=== PATIENT | male | born 1965 | race Two or more races ===

== ENCOUNTER 2018-12-01 16:26 | Outpatient (REF) | payer OTHER, SELFPAY ==
[2018-12-01 21:01] LABS: Anion Gap 10.8 mmol/L (3-11); BUN 10 mg/dL (7-18); CO2 27.2 mmol/L (21.0-32.0); CREATININE 0.88 mg/dL (0.70-1.30); Calcium 9.4 mg/dL (8.5-10.1); Chloride 102 mmol/L (98-107); Cholesterol 222 mg/dL (50-200); Glucose 94 mg/dL (70-100); HDL Cholesterol 47 mg/dL (40-60); LDL CHOLESTEROL 160 mg/dL (<100); Potassium 4.5 mmol/L (3.5-5.1); Sodium 140 mmol/L (136-145); Triglyceride 76 mg/dL (30-150)
[2018-12-03 10:41] LABS: PSA, Screening 0.2 ng/ml (0-3.5)
== END 2018-12-01 16:46 ==
LOC: NCHCN 16:26
PROVIDERS: PCP Specialist/Technologist Athletic Trainer; Visit Provider Specialist/Technologist Athletic Trainer
DX: Z13.220 Encounter for screening for lipoid disorders (principal); Z13.228 Encounter for screening for other metabolic disorders; Z12.5 Encounter for screening for malignant neoplasm of prostate; Z00.00 Encounter for general adult medical examination without abnormal findings
CPT/HCPCS: 80048; 80061; 83721; 84153

== ENCOUNTER 2018-12-17 00:42 | Outpatient (CLI) | payer OTHER, SELFPAY ==
--- NOTE | 2018-12-17 08:30 | ETT_ITS ---
*[facility]* *[facility]* [address] [place] [address] Stress Electrocardiography Dayne protocol Date of study: 12/17/2018 *PATIENT PRESENTATION* Height: 170.2cm (67in) Blood Pressure: Weight: 88.6kg (195lb) BSA: 2.07m^2 Referring physician: Kenn Cassidy Ordering physician: Kenn Cassidy Impressions: Normal study after maximal exercise. Summary: 1. Stress ECG conclusions: [place] treadmill score: 12. This score predicts a low risk of cardiac events. 2. Stress: The target heart rate was achieved. Indication: R07.9. History: REASON FOR TESTING: PATIENT REPORTS HAVING INTERMITTENT BRIEF EPISODES OF CHEST PAIN FOR THE PAST YEAR. THIS CHEST PAIN LASTS A COUPLE OF MINUTES, IS NON RADIATING IN NATURE, NOT ASSOCIATED WITH ACTIVITY OR REST, AND GOES AWAY AFTER I BURP. PATIENT DENIES CHEST PAIN UPON ARRIVAL TO TESTING TODAY. NO SIGNIFICANT PAST MEDICAL HISTORY. SMOKING STATUS: CURRENT SMOKER, 1 PPD. 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 Risk factors: Family history of coronary artery disease. Current tobacco use. Obesity. Dyslipidemia. Cholesterol: 222mg/dl. HDL: 47mg/dl. LDL: 160mg/dl. Triglycerides: 76mg/dl. ALLERGIES: PENICILLIN. MEDICATIONS: NONE. Protocol: Dayne protocol. Baseline ECG: SINUS RHYTHM. HR 63. INVERTED T WAVES IN LEADS AVL AND V1. Stress protocol: + +---+ + !Stage !HR !BP (mmHg) ! + +---+ + !Baseline supine !63 !110/70 (83) ! + +---+ + !Baseline standing !78 !118/80 (93) ! + +---+ + !Stage I; 1.7mph, 10degrees; 3 min !98 !128/80 (96) ! + +---+ + !Stage II; 2.5mph, 12degrees; 3 min !112!148/76 (100)! + +---+ + !Stage III; 3.4mph, 14degrees; 3 min!129!176/70 (105)! + +---+ + !Stage IV; 4.2mph, 16degrees; 3 min !150!190/80 (117)! + +---+ + !Peak stress !150! ! + +---+ + !Recovery; 1 min !121!190/80 (117)! + +---+ + !Recovery; 3 min !88 !144/78 (100)! + +---+ + !Recovery; 6 min !85 !120/80 (93) ! + +---+ + * Stress results: STRESS TEST ENDED IN 12 MINUTES 1 SECOND DUE TO FATIGUE. NORMAL HEART RATE AND BLOOD PRESSURE TO EXERCISE. MAX HEART RATE: 150. 90 % OF TARGET HEART RATE ACHIEVED. MET'S: 13.48 NO ECTOPY. NO ANGINA. NO SIGNIFICANT ST SEGMENT CHANGES. ABOVE AVERAGE FUNCTIONAL CAPACITY: ABOVE AVERAGE. Maximal heart rate during stress was 150bpm (90% of maximal predicted heart rate). The maximal predicted heart rate was 166bpm. The target heart rate was achieved. The rate-pressure product for the peak heart rate and blood pressure was 21085fs Hg/min. Stress ECG: [place] treadmill score: 12. This score predicts a low risk of cardiac events. Study data: Jamal Jaffe MD supervised and was readily available during the procedure. This study was interpreted by [facility]. Study status: Routine. Consent: The risks, benefits, and alternatives to the procedure were explained to the patient and informed consent was obtained. Procedure: Initial setup. A baseline ECG was recorded. Surface ECG leads and manual cuff blood pressure measurements were monitored. Heart sounds: Normal. Lung sounds: Normal. Treadmill exercise testing was performed using the Dayne protocol. Study completion: The patient tolerated the procedure well and was discharged from the lab. Discharge: The patient left the laboratory in stable condition. Birthdate: Patient birthdate: 1965. Sex: Gender: male. Study date: Study date: 12/17/2018. Study time: 00:01 AM. Signature Documentation: The Stress ECG portion of this study was interpreted by Jamal Jaffe MD. Electronically signed by Jamal Jaffe 12/17/2018 09:53
== END 2018-12-17 01:02 ==
PROVIDERS: PCP Specialist/Technologist Athletic Trainer; Visit Provider Specialist/Technologist Athletic Trainer
DX: R07.9 Chest pain, unspecified (principal); F17.200 Nicotine dependence, unspecified, uncomplicated; E78.5 Hyperlipidemia, unspecified; Z82.49 Family history of ischemic heart disease and other diseases of the circulatory system
CPT/HCPCS: 93017

== ENCOUNTER 2022-07-11 14:13 | Outpatient (REF) | payer OTHER, SELFPAY ==
[2022-07-11 16:03] LABS: Anion Gap 8.4 mmol/L (3-11); BUN 14 mg/dL (7-18); CO2 24.6 mmol/L (21.0-32.0); CREATININE 0.8 mg/dL (0.70-1.30); Calcium 9.1 mg/dL (8.5-10.1); Calculated LDL 154 mg/dL (<100); Chloride 107 mmol/L (98-107); Cholesterol 212 mg/dL (<200); Estimated GFR 102.58 (mL/min/1.73m2); Glucose 94 mg/dL (74-106); HDL Cholesterol 46 mg/dL (40-60); Potassium 4.5 mmol/L (3.5-5.1); Sodium 140 mmol/L (136-145); TSH (W/Ref FT4) 3.04 uIU/mL (0.36-3.74); Triglyceride 61 mg/dL (<150)
[2022-07-12 09:33] LABS: HIV-1/2 Ag & Ab Screen Negative (Negative)
[2022-07-14 11:13] LABS: Hepatitis C Ab w Rflx HCV PCR Negative (Negative)
[2022-07-14 12:19] LABS: PSA, Screening 0.2 ng/mL (<=3.5)
[2022-07-25 11:36] LABS: Testosterone, Free 9.63 ng/dL (3.87-14.7); Testosterone, Total 370 ng/dL (240-950)
== END 2022-07-11 14:14 | disposition home or self-care (01) ==
LOC: NCHCN 14:13
PROVIDERS: PCP Specialist/Technologist Athletic Trainer; Visit Provider Nurse Practitioner Family
DX: Z00.00 Encounter for general adult medical examination without abnormal findings (principal); Z11.4 Encounter for screening for human immunodeficiency virus [HIV]; Z11.59 Encounter for screening for other viral diseases; Z12.5 Encounter for screening for malignant neoplasm of prostate
CPT/HCPCS: 80048; 80061; 84153; 84402; 84403; 86803; 87389; 84443

== ENCOUNTER 2023-04-01 10:18 | Outpatient (REF) | payer BC, SELFPAY ==
[2023-04-01 17:00] LABS: ALT 30 U/L (16-63); AST 23 U/L (15-37); Albumin 3.7 g/dL (3.4-5.0); Alkaline Phosphatase 71 U/L (46-116); Anion Gap 10.2 mmol/L (3-11); BUN 19 mg/dL (7-18); Bilirubin, Total 0.2 mg/dL (0.2-1.0); CO2 25.8 mmol/L (21.0-32.0); CREATININE 0.9 mg/dL (0.70-1.30); Calculated LDL 117 mg/dL (<100); Chloride 106 mmol/L (98-107); Cholesterol 185 mg/dL (<200); Glucose 141 mg/dL (74-106); HDL Cholesterol 35 mg/dL (40-60); Potassium 4.3 mmol/L (3.5-5.1); Sodium 142 mmol/L (136-145); Total Protein 7.1 g/dL (6.4-8.2); Triglyceride 165 mg/dL (<150)
== END 2023-04-01 10:19 | disposition home or self-care (01) ==
LOC: NCHCN 10:18
PROVIDERS: PCP Nurse Practitioner Family; Visit Provider Nurse Practitioner Family
DX: Z00.00 Encounter for general adult medical examination without abnormal findings (principal)
CPT/HCPCS: 80053; 80061

== ENCOUNTER 2025-08-01 15:40 | Outpatient (REF) | payer OTHER, SELFPAY ==
[2025-08-01 19:55] LABS: HCT 46.6 % (40.0-50.0); HGB 15.6 g/dL (13.5-17.5); MCH 29.9 pg (27.0-33.0); MCHC 33.5 % (32.0-36.0); MCV 89 fL (80-95); MPV 10.0 fL (8.0-11.0); Platelet Count 241 10^3/uL (130-400); RBC 5.22 10^6/uL (4.36-5.78); RDW 12.9 % (11.8-14.1); RDW-SD 42.2 fL; WBC 15.29 10^3/uL (4.4-10.8)
[2025-08-01 20:18] LABS: ALT 28 U/L (10-49); AST 22 U/L (<34); Albumin 4.6 g/dL (3.4-5.0); Alkaline Phosphatase 69 U/L (46-116); Anion Gap 4.2 mmol/L (3-11); BUN 18 mg/dL (9-23); Bilirubin, Total 0.20 mg/dL (0.2-1.2); CO2 25.8 mmol/L (20.0-31.0); Calcium 9.6 mg/dL (8.3-10.6); Chloride 110 mmol/L (98-107); Cholesterol 180 mg/dL (<200); Glucose 90 mg/dL (74-106); HDL Cholesterol 41 mg/dL (>40); Potassium 4.5 mmol/L (3.5-5.1); Sodium 140 mmol/L (136-145); Total Protein 7.4 g/dL (5.7-8.2)
[2025-08-01 22:52] LABS: Hemoglobin A1C 6.0 % (<5.7)
[2025-08-02 18:26] LABS: PSA, Screening 0.2 ng/mL (<=4.5)
== END 2025-08-01 15:41 | disposition home or self-care (01) ==
LOC: NCHCN 15:40
PROVIDERS: PCP Nurse Practitioner Family; Visit Provider Family Medicine
DX: Z13.6 Encounter for screening for cardiovascular disorders (principal); Z00.00 Encounter for general adult medical examination without abnormal findings; Z13.1 Encounter for screening for diabetes mellitus; Z12.5 Encounter for screening for malignant neoplasm of prostate
CPT/HCPCS: 80053; 80061; 84153; 85027; 81015; 83036

== ENCOUNTER 2025-09-19 08:42 | Outpatient (REF) | payer OTHER, SELFPAY ==
[2025-09-19 15:55] LABS: Abs Immature Grans 0.06 10^3/uL (0.0-0.06); HCT 46.3 % (40.0-50.0); HGB 15.7 g/dL (13.5-17.5); Immature Grans % 0.4 %; MCH 30.4 pg (27.0-33.0); MCHC 33.9 % (32.0-36.0); MCV 90 fL (80-95); MPV 10.8 fL (8.0-11.0); Platelet Count 230 10^3/uL (130-400); RBC 5.17 10^6/uL (4.36-5.78); RDW 12.7 % (11.8-14.1); RDW-SD 41.9 fL; WBC 15.71 10^3/uL (4.4-10.8)
== END 2025-09-19 08:43 | disposition home or self-care (01) ==
LOC: NCHCN 08:42
PROVIDERS: PCP Nurse Practitioner Family; Visit Provider Family Medicine
DX: D72.829 Elevated white blood cell count, unspecified (principal)
CPT/HCPCS: 85025